=== PATIENT | male | born 1995 | race Caucasian/White ===

== ENCOUNTER → 2020-02-26 08:45 | Outpatient (CLI) | payer OTHER, SELFPAY ==
--- NOTE | ~2020-02-26 | MR_ITS ---
EXAMINATION: MR knee RT wo con DATE: 02/26/2020 09:21 INDICATION: Right knee pain. TECHNIQUE: Magnetic resonance imaging (MRI) of the right knee was performed without intravenous contr ast. Sequences included axial PD-weighted FS FSE, coronal PD-weighted FSE and PD-weighted FS FSE, sag ittal PD-weighted FSE, and sagittal T2-weighted FS FSE. COMPARISON: Right knee radiographs 02/06/2014 FINDINGS: Medial compartment: There is a torn bucket-handle tear of medial meniscus. There is shallow partial-thickness cartilage l oss of tibial condyle involving the central articular surface with mild subchondral edema-like marrow signal intensity. There is shallow partial-thickness cartilage loss of femoral condyle involving the central and medial articular surface with moderate subchondral edema-like marrow signal intensity. Lateral compartment: Lateral meniscus is normal. Lateral compartment cartilage is intact. Patellofemoral compartment: The trochlea cartilage is normal. There is cartilage surface irregularity of patellar lateral facet. Ligaments and tendons: There is a complete tear of anterior cruciate ligament at its proximal attachment. Posterior cruciate ligament is intact. Medial collateral ligament and lateral collateral ligament complex are intact. T he patellar tendon is normal. Fluid: There is a moderate-sized knee joint effusion. IMPRESSION: 1. Mild chondrosis of medial and patellofemoral compartments. 2. Torn bucket-handle tear of medial meniscus. 3. Complete tear of anterior cruciate ligament. 4. Moderate-sized knee joint effusion. Reviewed, dictated and finalized at location A.
== END ==
PROVIDERS: Visit Provider Orthopaedic Surgery
DX: M25.561 Pain in right knee (principal); M22.2X1 Patellofemoral disorders, right knee; S83.211A Bucket-handle tear of medial meniscus, current injury, right knee, initial encounter; S83.511A Sprain of anterior cruciate ligament of right knee, initial encounter; M25.461 Effusion, right knee
CPT/HCPCS: 73721